=== PATIENT | female | born 1990 | race Caucasian/White ===

== ENCOUNTER 2018-04-29 02:55 | Inpatient (IN) | payer OTHER ==
[2018-04-29] MEDS ORDERED: Scopolamine 1.5 MG Transdermal Patch ONE (04:09)
[2018-04-29] MEDS ORDERED: Scopolamine 1.5 MG Transdermal Patch TOP ONE (04:10)
[2018-04-29] MEDS ORDERED: Lactated Ringers 1,000 ML IV SCH (04:25)
[2018-04-29] MEDS ORDERED: ceFAZolin 2 GM in Premix Bag 1 BAG IV ONE (04:30)
[2018-04-29] MEDS ORDERED: Citric Acid/Sodium Citrate Solution 30 ML Cup PO ONE (04:31)
--- NOTE | 2018-04-29 05:55 | PCM.OPNOTE ---
- General Post-Op/Procedure Note Date of Surgery/Procedure: 04/29/18 Operative Procedure(s): Repeat Pre Op Diagnosis: Term preg, previous C-sect, active labor Post-Op Diagnosis: Same Anesthesia Technique: Spinal Primary Surgeon: Maxi Ross Secondary Surgeon: Oscar Ren Anesthesia Provider: Hannah Cobb Pathology: Placenta EBL in mLs: 400 Complications: None Condition: Good
[2018-04-29] MEDS ORDERED: diphenhydrAMINE 50 MG/ML SDV IVPUSH PRN ×2 (05:58→05:59)
[2018-04-29] MEDS ORDERED: ePHEDrine 50 MG/ML SDV IVPUSH PRN ×2 (05:58→05:59)
[2018-04-29] MEDS ORDERED: Naloxone 0.4 MG/ML SDV IVPUSH PRN ×2 (05:58→05:59)
--- NOTE | 2018-04-29 05:58 | PCM.HPR ---
H & P Addendum review - H & P Addendum Review Date of Original H & P: 04/27/18 Date Reviewed: 04/29/18 Time Reviewed: 04:20 Patient was Examined: Changes (Presents in labor so will proceed with repet C- scet this am, risks and complications reviewed, consent obtained)
[2018-04-29] MEDS ORDERED: Docusate Sodium 100 MG Cap PO PRN (05:59)
[2018-04-29] MEDS ORDERED: Bisacodyl 10 MG Supp RECTAL PRN (05:59)
[2018-04-29] MEDS ORDERED: Ondansetron 4 MG/2 ML SDV IVPUSH PRN (06:23)
[2018-04-29] MEDS ORDERED: Ketorolac 15 MG/ML SDV IVPUSH PRN (06:23)
[2018-04-29] MEDS ORDERED: Morphine 2 MG/ML Syringe IVPUSH PRN (06:23)
[2018-04-29] MEDS ORDERED: Nalbuphine 10 MG/1 ML Vial IVPUSH PRN (06:23)
[2018-04-29] MEDS ORDERED: diphenhydrAMINE 50 MG/ML SDV IV PRN (06:23)
--- NOTE | 2018-04-29 06:38 | OR ---
DATE OF OPERATION: 04/29/2018 SURGEON: Maxi Ross MD PREOPERATIVE DIAGNOSIS: Term with previous section, in active labor. POSTOPERATIVE DIAGNOSIS: Term with previous section, in active labor. PROCEDURE PERFORMED: Repeat section. ACADEMIC MANAGER: Oscar Ren MD ANESTHESIA: Spinal. DESCRIPTION OF PROCEDURE: The patient was brought to the operating room where spinal anesthetic was administered. A Melgar catheter was inserted and Flowtrons applied. Time-out was performed. IV antibiotics had been given. Lower abdomen was prepped with ChloraPrep and draped sterilely. A lower transverse incision was made through her previous scar and extended to the rectus fascia, which was incised and extended laterally. Rectus muscles were split in the midline and peritoneal cavity entered without difficulty. No adhesions were present. Lower uterine segment was muscular and was not thinned. This was sharply incised until the amniotic sac was visible. This was then bluntly entered and the uterine incision extended laterally. Some light greenish clear meconium was present. Head was delivered without difficulty. Position was left occiput transverse. The mouth and nose were suctioned. Rest of the infant was delivered without difficulty and handed off to the nursing staff after cord was clamped and cut. Cord blood was obtained. The uterus was massaged and placenta and removed. All membranes were ensured to be removed. Uterus had good tone. Uterine incision was closed in a single layer with running locking #1 Vicryl. Hemostasis was assured. Uterus was delivered back into the peritoneal cavity. The abdomen was irrigated and suctioned and return was clear. Peritoneum was closed with running 2-0 chromic. Rectus fascia was closed with a running 0 Vicryl. Subcutaneous tissue was irrigated and skin closed with a running 4-0 Vicryl subcuticular suture. Benzoin and Steri-Strips were placed, and sterile dressing applied. The vagina was evacuated of some old blood and clot following the procedure. The patient tolerated the procedure well. Estimated blood loss was 400 mL. She returned to Postanesthesia in stable condition. /[id number] HONG/ARYA
[2018-04-29] MEDS: Lactated Ringers 1,000 ML IV SCH ×2 (07:50→15:55)
[2018-04-29] MEDS ORDERED: Midazolam 1 MG/ML 2 ML SDV IV ONE (14:39)
[2018-04-29] MEDS ORDERED: ePHEDrine 50 MG/ML SDV IV ONE (14:39)
[2018-04-29] MEDS ORDERED: Bupivacaine 0.75%/D5W 2 ML Amp ISPINAL ONE (14:39)
[2018-04-29] MEDS ORDERED: fentaNYL 100 MCG/2 ML SDV IV ONE (14:39)
[2018-04-29] MEDS ORDERED: Ondansetron 4 MG/2 ML SDV IVPUSH ONE (14:39)
[2018-04-29] MEDS ORDERED: diphenhydrAMINE 50 MG/ML SDV IVPUSH ONE (14:39)
[2018-04-29] MEDS ORDERED: Dexamethasone 4 MG/ML 5 ML MDV IVPUSH ONE (14:39)
[2018-04-29] MEDS ORDERED: Morphine PF 10 MG/10 ML SDV EPIDUR ONE (14:39)
[2018-04-29] MEDS ORDERED: Neostigmine Methylsulfate 10 MG/10 ML MDV IVPUSH ONE (14:39)
[2018-04-29] MEDS: Acetaminophen/HYDROcodone 325-5 MG Tab PO PRN (17:39)
[2018-04-30] MEDS: Acetaminophen/HYDROcodone 325-5 MG Tab PO PRN ×4 (02:32→21:30)
[2018-04-30] MEDS: Ibuprofen 600 MG Tab PO SCH ×3 (06:13→18:08)
--- NOTE | 2018-04-30 17:22 | PCM.SURGPN ---
- General Info Date of Service: 04/30/18 POD#: 1 Functional Status: Reports: Pain Controlled, Tolerating Diet, Ambulating, Urinating - Review of Systems General: Reports: No Symptoms Musculoskeletal: Reports: Leg Pain (right upper thigh from varicose veins) - Patient Data Vitals - Most Recent: Last Vital Signs Temp 98.2 F 04/30/18 02:30 Pulse 62 04/30/18 02:30 Resp 16 04/30/18 02:30 BP 131/77 04/30/18 02:30 Pulse Ox 97 04/30/18 02:30 Weight - Most Recent: 138.346 kg I&O - Last 24 Hours: Intake & Output 04/30/18 04/30/18 04/30/18 06:59 14:59 22:59 Intake Total 700 Output Total 1725 600 Balance -1025 -600 Lab Results Last 24 Hrs: Laboratory Results - last 24 hr 04/30/18 Range/Units 06:48 WBC 11.0 (4.5-12.0) X10-3/uL RBC 4.17 (3.23-5.20) x10(6)uL Hgb 11.8 (11.5-15.5) g/dL Hct 35.5 (30.0-51.3) % MCV 85.1 (80-96) fL MCH 28.2 (27.7-33.6) pg MCHC 33.1 (32.2-35.4) g/dL RDW 14.1 (11.5-15.5) % Plt Count 123 L (125-369) X10(3)uL Med Orders - Current: Current Medications Hydrocodone Bitart/Acetaminophen ([place] 325-5 Mg) 1 tab PO Q4H PRN PRN Reason: Pain (moderate 4-6) Last Admin: 04/30/18 15:17 Dose: 1 tab Bisacodyl (Dulcolax) 10 mg RECTAL BID PRN PRN Reason: Constipation Diphenhydramine HCl (Benadryl) 25 mg IVPUSH Q6H PRN PRN Reason: Itching or Nausea Last Admin: 04/29/18 09:42 Dose: 25 mg Diphenhydramine HCl (Benadryl) 25 mg IV ONETIME PRN PRN Reason: Pruritus Last Admin: 04/29/18 08:56 Dose: 25 mg Docusate Sodium (Colace) 100 mg PO Q12H PRN PRN Reason: Constipation Ephedrine Sulfate (Ephedrine Sulfate) 5 mg IVPUSH ASDIRECTED PRN PRN Reason: Other Ibuprofen (Motrin) 600 mg PO Q6H [facility] Last Admin: 04/30/18 12:02 Dose: 600 mg Ketorolac Tromethamine (Toradol) 15 mg IVPUSH Q6H PRN PRN Reason: Pain Stop: 05/04/18 06:25 Morphine Sulfate (Morphine) 2 mg IVPUSH Q1H PRN PRN Reason: Pain Nalbuphine HCl (Nubain) 10 mg IVPUSH Q1H PRN PRN Reason: Pruritus Naloxone HCl (Narcan) 0.1 mg IVPUSH ONETIME PRN PRN Reason: Respiratory Depression Ondansetron HCl (Zofran) 4 mg IVPUSH Q6H PRN PRN Reason: Nausea/Vomiting Discontinued Medications Citric Acid/Sodium Citrate (Bicitra Solution) 30 ml PO ONETIME ONE Stop: 04/29/18 04:32 Last Admin: 04/29/18 04:34 Dose: 30 ml Diphenhydramine HCl (Benadryl) 25 mg IVPUSH Q6H PRN PRN Reason: Itching or Nausea Ephedrine Sulfate (Ephedrine Sulfate) 5 mg IVPUSH ASDIRECTED PRN PRN Reason: Other Cefazolin Sodium/Dextrose 2 gm (/ Premix) 50 mls @ 100 mls/hr IV ONETIME ONE Stop: 04/29/18 04:59 Last Admin: 04/29/18 04:35 Dose: 100 mls/hr Lactated Ringer's (Ringers, Lactated) 1,000 mls @ 125 mls/hr IV ASDIRECTED [facility] Last Admin: 04/29/18 15:55 Dose: 125 mls/hr Lactated Ringer's (Ringers, Lactated) 1,000 mls @ 125 mls/hr IV ASDIRECTED [facility] Last Admin: 04/29/18 03:25 Dose: 125 mls/hr Naloxone HCl (Narcan) 0.1 mg IVPUSH ONETIME PRN PRN Reason: Respiratory Depression Scopolamine (Transderm-Scop) Confirm Administered Dose 1.5 mg .ROUTE .STK-MED ONE Stop: 04/29/18 04:10 Last Admin: 04/29/18 08:52 Dose: Not Given Scopolamine (Transderm-Scop) 1.5 mg TOP ONETIME ONE Stop: 04/29/18 04:11 Last Admin: 04/29/18 04:10 Dose: 1.5 mg - Exam Wound/Incisions: Healing Well, Dressing Dry and Intact Extremities: Leg Pain (from right thigh thrombophlebitis) - Problem List Review Problem List Initiated/Reviewed/Updated: Yes - My Orders Last 24 Hours: Active Orders 24 hr Category Date Time Status Urinary Catheter Removal [RC] Per Unit Routine Care 04/30/18 11:00 Active Regular Diet [DIET] Diet 04/30/18 Lunch Active Aspirin [Ecotrin] Med 04/30/18 17:30 Ordered 325 mg PO DAILY Ibuprofen [Motrin] Med 04/30/18 06:00 Active 600 mg PO Q6H Medication Orders Hydrocodone Bitart/Acetaminophen ([place] 325-5 Mg) 1 tab PO Q4H PRN PRN Reason: Pain (moderate 4-6) Last Admin: 04/30/18 15:17 Dose: 1 tab Admin: 04/30/18 10:35 Dose: 1 tab Admin: 04/30/18 02:32 Dose: 1 tab Admin: 04/29/18 17:39 Dose: 1 tab Bisacodyl (Dulcolax) 10 mg RECTAL BID PRN PRN Reason: Constipation Diphenhydramine HCl (Benadryl) 25 mg IVPUSH Q6H PRN PRN Reason: Itching or Nausea Last Admin: 04/29/18 09:42 Dose: 25 mg Diphenhydramine HCl (Benadryl) 25 mg IV ONETIME PRN PRN Reason: Pruritus Last Admin: 04/29/18 08:56 Dose: 25 mg Docusate Sodium (Colace) 100 mg PO Q12H PRN PRN Reason: Constipation Ephedrine Sulfate (Ephedrine Sulfate) 5 mg IVPUSH ASDIRECTED PRN PRN Reason: Other Ibuprofen (Motrin) 600 mg PO Q6H [facility] Last Admin: 04/30/18 12:02 Dose: 600 mg Admin: 04/30/18 06:13 Dose: 600 mg Ketorolac Tromethamine (Toradol) 15 mg IVPUSH Q6H PRN PRN Reason: Pain Stop: 05/04/18 06:25 Morphine Sulfate (Morphine) 2 mg IVPUSH Q1H PRN PRN Reason: Pain Nalbuphine HCl (Nubain) 10 mg IVPUSH Q1H PRN PRN Reason: Pruritus Naloxone HCl (Narcan) 0.1 mg IVPUSH ONETIME PRN PRN Reason: Respiratory Depression Ondansetron HCl (Zofran) 4 mg IVPUSH Q6H PRN PRN Reason: Nausea/Vomiting - Assessment Assessment (Free Text/Narrative):: Doing well POD #1 R Leg Thrombophlebitis - Plan Plan (Free Text/Narrative):: Cont as is Start Full ASA daily
[2018-04-30] MEDS: Aspirin 325 MG Tab.EC PO SCH (18:08)
[2018-05-01] MEDS: Ibuprofen 600 MG Tab PO SCH ×4 (00:51→17:39)
--- NOTE | 2018-05-01 08:52 | PCM.SURGPN ---
- General Info Date of Service: 05/01/18 POD#: 2 Functional Status: Reports: Pain Controlled, Tolerating Diet, Ambulating, Urinating - Review of Systems General: Reports: No Symptoms (right leg about the same) Gastrointestinal: Reports: No Symptoms - Patient Data Vitals - Most Recent: Last Vital Signs Temp 97.7 F 04/30/18 20:00 Pulse 86 04/30/18 20:00 Resp 18 04/30/18 20:00 BP 142/91 H 04/30/18 20:00 Pulse Ox 96 04/30/18 20:00 Weight - Most Recent: 138.346 kg Med Orders - Current: Current Medications Hydrocodone Bitart/Acetaminophen ([place] 325-5 Mg) 1 tab PO Q4H PRN PRN Reason: Pain (moderate 4-6) Last Admin: 04/30/18 21:30 Dose: 1 tab Aspirin (Ecotrin) 325 mg PO DAILY [facility] Last Admin: 04/30/18 18:08 Dose: 325 mg Bisacodyl (Dulcolax) 10 mg RECTAL BID PRN PRN Reason: Constipation Diphenhydramine HCl (Benadryl) 25 mg IVPUSH Q6H PRN PRN Reason: Itching or Nausea Last Admin: 04/29/18 09:42 Dose: 25 mg Diphenhydramine HCl (Benadryl) 25 mg IV ONETIME PRN PRN Reason: Pruritus Last Admin: 04/29/18 08:56 Dose: 25 mg Docusate Sodium (Colace) 100 mg PO Q12H PRN PRN Reason: Constipation Ephedrine Sulfate (Ephedrine Sulfate) 5 mg IVPUSH ASDIRECTED PRN PRN Reason: Other Ibuprofen (Motrin) 600 mg PO Q6H [facility] Last Admin: 05/01/18 06:46 Dose: 600 mg Ketorolac Tromethamine (Toradol) 15 mg IVPUSH Q6H PRN PRN Reason: Pain Stop: 05/04/18 06:25 Morphine Sulfate (Morphine) 2 mg IVPUSH Q1H PRN PRN Reason: Pain Nalbuphine HCl (Nubain) 10 mg IVPUSH Q1H PRN PRN Reason: Pruritus Naloxone HCl (Narcan) 0.1 mg IVPUSH ONETIME PRN PRN Reason: Respiratory Depression Ondansetron HCl (Zofran) 4 mg IVPUSH Q6H PRN PRN Reason: Nausea/Vomiting Discontinued Medications Citric Acid/Sodium Citrate (Bicitra Solution) 30 ml PO ONETIME ONE Stop: 04/29/18 04:32 Last Admin: 04/29/18 04:34 Dose: 30 ml Diphenhydramine HCl (Benadryl) 25 mg IVPUSH Q6H PRN PRN Reason: Itching or Nausea Ephedrine Sulfate (Ephedrine Sulfate) 5 mg IVPUSH ASDIRECTED PRN PRN Reason: Other Cefazolin Sodium/Dextrose 2 gm (/ Premix) 50 mls @ 100 mls/hr IV ONETIME ONE Stop: 04/29/18 04:59 Last Admin: 04/29/18 04:35 Dose: 100 mls/hr Lactated Ringer's (Ringers, Lactated) 1,000 mls @ 125 mls/hr IV ASDIRECTED [facility] Last Admin: 04/29/18 15:55 Dose: 125 mls/hr Lactated Ringer's (Ringers, Lactated) 1,000 mls @ 125 mls/hr IV ASDIRECTED [facility] Last Admin: 04/29/18 03:25 Dose: 125 mls/hr Naloxone HCl (Narcan) 0.1 mg IVPUSH ONETIME PRN PRN Reason: Respiratory Depression Scopolamine (Transderm-Scop) Confirm Administered Dose 1.5 mg .ROUTE .STK-MED ONE Stop: 04/29/18 04:10 Last Admin: 04/29/18 08:52 Dose: Not Given Scopolamine (Transderm-Scop) 1.5 mg TOP ONETIME ONE Stop: 04/29/18 04:11 Last Admin: 04/29/18 04:10 Dose: 1.5 mg - Exam Wound/Incisions: Healing Well, Dressing Dry and Intact - Problem List Review Problem List Initiated/Reviewed/Updated: Yes - My Orders Last 24 Hours: Active Orders 24 hr Category Date Time Status Regular Diet [DIET] Diet 04/30/18 Lunch Active Aspirin [Ecotrin] Med 04/30/18 17:30 Active 325 mg PO DAILY Medication Orders Hydrocodone Bitart/Acetaminophen ([place] 325-5 Mg) 1 tab PO Q4H PRN PRN Reason: Pain (moderate 4-6) Last Admin: 04/30/18 21:30 Dose: 1 tab Admin: 04/30/18 15:17 Dose: 1 tab Admin: 04/30/18 10:35 Dose: 1 tab Admin: 04/30/18 02:32 Dose: 1 tab Admin: 04/29/18 17:39 Dose: 1 tab Aspirin (Ecotrin) 325 mg PO DAILY [facility] Last Admin: 04/30/18 18:08 Dose: 325 mg Bisacodyl (Dulcolax) 10 mg RECTAL BID PRN PRN Reason: Constipation Diphenhydramine HCl (Benadryl) 25 mg IVPUSH Q6H PRN PRN Reason: Itching or Nausea Last Admin: 04/29/18 09:42 Dose: 25 mg Diphenhydramine HCl (Benadryl) 25 mg IV ONETIME PRN PRN Reason: Pruritus Last Admin: 04/29/18 08:56 Dose: 25 mg Docusate Sodium (Colace) 100 mg PO Q12H PRN PRN Reason: Constipation Ephedrine Sulfate (Ephedrine Sulfate) 5 mg IVPUSH ASDIRECTED PRN PRN Reason: Other Ibuprofen (Motrin) 600 mg PO Q6H [facility] Last Admin: 05/01/18 06:46 Dose: 600 mg Admin: 05/01/18 00:51 Dose: 600 mg Admin: 04/30/18 18:08 Dose: 600 mg Admin: 04/30/18 12:02 Dose: 600 mg Admin: 04/30/18 06:13 Dose: 600 mg Ketorolac Tromethamine (Toradol) 15 mg IVPUSH Q6H PRN PRN Reason: Pain Stop: 05/04/18 06:25 Morphine Sulfate (Morphine) 2 mg IVPUSH Q1H PRN PRN Reason: Pain Nalbuphine HCl (Nubain) 10 mg IVPUSH Q1H PRN PRN Reason: Pruritus Naloxone HCl (Narcan) 0.1 mg IVPUSH ONETIME PRN PRN Reason: Respiratory Depression Ondansetron HCl (Zofran) 4 mg IVPUSH Q6H PRN PRN Reason: Nausea/Vomiting - Assessment Assessment (Free Text/Narrative):: Doing well - Plan Plan (Free Text/Narrative):: Plan discharge tomorrow
[2018-05-01] MEDS: Aspirin 325 MG Tab.EC PO SCH (09:31)
[2018-05-01] MEDS: Acetaminophen/HYDROcodone 325-5 MG Tab PO PRN ×2 (09:33→20:29)
[2018-05-02] MEDS: Ibuprofen 600 MG Tab PO SCH ×3 (00:10→12:22)
[2018-05-02] MEDS: Acetaminophen/HYDROcodone 325-5 MG Tab PO PRN (05:35)
[2018-05-02 09:49] VITALS: BP 130/83
[2018-05-02] MEDS: Aspirin 325 MG Tab.EC PO SCH (10:28)
--- NOTE | 2018-05-02 14:18 | PCM.SURGPN ---
- General Info Date of Service: 05/02/18 POD#: 3 Functional Status: Reports: Pain Controlled, Tolerating Diet, Ambulating - Review of Systems General: Reports: No Symptoms - Patient Data Vitals - Most Recent: Last Vital Signs Temp 98.7 F 05/02/18 07:30 Pulse 87 05/02/18 07:30 Resp 18 05/02/18 07:30 BP 130/83 05/02/18 07:30 Pulse Ox 98 05/02/18 07:30 Weight - Most Recent: 138.346 kg Med Orders - Current: Current Medications Hydrocodone Bitart/Acetaminophen ([place] 325-5 Mg) 1 tab PO Q4H PRN PRN Reason: Pain (moderate 4-6) Last Admin: 05/02/18 05:35 Dose: 1 tab Aspirin (Ecotrin) 325 mg PO DAILY [facility] Last Admin: 05/02/18 10:28 Dose: 325 mg Bisacodyl (Dulcolax) 10 mg RECTAL BID PRN PRN Reason: Constipation Diphenhydramine HCl (Benadryl) 25 mg IVPUSH Q6H PRN PRN Reason: Itching or Nausea Last Admin: 04/29/18 09:42 Dose: 25 mg Diphenhydramine HCl (Benadryl) 25 mg IV ONETIME PRN PRN Reason: Pruritus Last Admin: 04/29/18 08:56 Dose: 25 mg Docusate Sodium (Colace) 100 mg PO Q12H PRN PRN Reason: Constipation Ephedrine Sulfate (Ephedrine Sulfate) 5 mg IVPUSH ASDIRECTED PRN PRN Reason: Other Ibuprofen (Motrin) 600 mg PO Q6H [facility] Last Admin: 05/02/18 12:22 Dose: 600 mg Ketorolac Tromethamine (Toradol) 15 mg IVPUSH Q6H PRN PRN Reason: Pain Stop: 05/04/18 06:25 Morphine Sulfate (Morphine) 2 mg IVPUSH Q1H PRN PRN Reason: Pain Nalbuphine HCl (Nubain) 10 mg IVPUSH Q1H PRN PRN Reason: Pruritus Naloxone HCl (Narcan) 0.1 mg IVPUSH ONETIME PRN PRN Reason: Respiratory Depression Ondansetron HCl (Zofran) 4 mg IVPUSH Q6H PRN PRN Reason: Nausea/Vomiting Discontinued Medications Citric Acid/Sodium Citrate (Bicitra Solution) 30 ml PO ONETIME ONE Stop: 04/29/18 04:32 Last Admin: 04/29/18 04:34 Dose: 30 ml Diphenhydramine HCl (Benadryl) 25 mg IVPUSH Q6H PRN PRN Reason: Itching or Nausea Ephedrine Sulfate (Ephedrine Sulfate) 5 mg IVPUSH ASDIRECTED PRN PRN Reason: Other Cefazolin Sodium/Dextrose 2 gm (/ Premix) 50 mls @ 100 mls/hr IV ONETIME ONE Stop: 04/29/18 04:59 Last Admin: 04/29/18 04:35 Dose: 100 mls/hr Lactated Ringer's (Ringers, Lactated) 1,000 mls @ 125 mls/hr IV ASDIRECTED [facility] Last Admin: 04/29/18 15:55 Dose: 125 mls/hr Lactated Ringer's (Ringers, Lactated) 1,000 mls @ 125 mls/hr IV ASDIRECTED [facility] Last Admin: 04/29/18 03:25 Dose: 125 mls/hr Naloxone HCl (Narcan) 0.1 mg IVPUSH ONETIME PRN PRN Reason: Respiratory Depression Scopolamine (Transderm-Scop) Confirm Administered Dose 1.5 mg .ROUTE .STK-MED ONE Stop: 04/29/18 04:10 Last Admin: 04/29/18 08:52 Dose: Not Given Scopolamine (Transderm-Scop) 1.5 mg TOP ONETIME ONE Stop: 04/29/18 04:11 Last Admin: 04/29/18 04:10 Dose: 1.5 mg - Exam Wound/Incisions: Healing Well, Dressing Dry and Intact - Problem List Review Problem List Initiated/Reviewed/Updated: Yes - My Orders Last 24 Hours: Medication Orders Hydrocodone Bitart/Acetaminophen ([place] 325-5 Mg) 1 tab PO Q4H PRN PRN Reason: Pain (moderate 4-6) Last Admin: 05/02/18 05:35 Dose: 1 tab Admin: 05/01/18 20:29 Dose: 1 tab Admin: 05/01/18 09:33 Dose: 1 tab Admin: 04/30/18 21:30 Dose: 1 tab Admin: 04/30/18 15:17 Dose: 1 tab Admin: 04/30/18 10:35 Dose: 1 tab Admin: 04/30/18 02:32 Dose: 1 tab Admin: 04/29/18 17:39 Dose: 1 tab Aspirin (Ecotrin) 325 mg PO DAILY [facility] Last Admin: 05/02/18 10:28 Dose: 325 mg Admin: 05/01/18 09:31 Dose: 325 mg Admin: 04/30/18 18:08 Dose: 325 mg Bisacodyl (Dulcolax) 10 mg RECTAL BID PRN PRN Reason: Constipation Diphenhydramine HCl (Benadryl) 25 mg IVPUSH Q6H PRN PRN Reason: Itching or Nausea Last Admin: 04/29/18 09:42 Dose: 25 mg Diphenhydramine HCl (Benadryl) 25 mg IV ONETIME PRN PRN Reason: Pruritus Last Admin: 04/29/18 08:56 Dose: 25 mg Docusate Sodium (Colace) 100 mg PO Q12H PRN PRN Reason: Constipation Ephedrine Sulfate (Ephedrine Sulfate) 5 mg IVPUSH ASDIRECTED PRN PRN Reason: Other Ibuprofen (Motrin) 600 mg PO Q6H [facility] Last Admin: 05/02/18 12:22 Dose: 600 mg Admin: 05/02/18 05:32 Dose: 600 mg Admin: 05/02/18 00:10 Dose: Not Given Admin: 05/01/18 17:39 Dose: 600 mg Admin: 05/01/18 12:04 Dose: 600 mg Admin: 05/01/18 06:46 Dose: 600 mg Admin: 05/01/18 00:51 Dose: 600 mg Admin: 04/30/18 18:08 Dose: 600 mg Admin: 04/30/18 12:02 Dose: 600 mg Admin: 04/30/18 06:13 Dose: 600 mg Ketorolac Tromethamine (Toradol) 15 mg IVPUSH Q6H PRN PRN Reason: Pain Stop: 05/04/18 06:25 Morphine Sulfate (Morphine) 2 mg IVPUSH Q1H PRN PRN Reason: Pain Nalbuphine HCl (Nubain) 10 mg IVPUSH Q1H PRN PRN Reason: Pruritus Naloxone HCl (Narcan) 0.1 mg IVPUSH ONETIME PRN PRN Reason: Respiratory Depression Ondansetron HCl (Zofran) 4 mg IVPUSH Q6H PRN PRN Reason: Nausea/Vomiting - Assessment Assessment (Free Text/Narrative):: Doing well - Plan Plan (Free Text/Narrative):: Discharge
--- NOTE | 2018-05-02 14:21 | PCM.DCSUM1 ---
Discharge Summary - Hospital Course Free Text/Narrative:: Presented in labor and had C-sect dean of instruction of 04/29/18 HPI Initial Comments: Term with prior C-sect Brief History: See H&P - Discharge Data Discharge Date: 05/02/18 Discharge Disposition: Home, Self-Care 01 Condition: Good - Patient Summary/Data Operative Procedure(s) Performed: Repeat Complications: none Recommended Follow-up Testing/Procedures: Dr Ross 1 month for recheck of varicose veins and thrombophlebitis - Patient Instructions Diet: Usual Diet as Tolerated Activity: No Lifting Over 20 Pounds (for 4 weeks) Driving: May Drive Today Showering/Bathing: May Shower Wound/Incision Care: Keep Operative Site/Wound Site Clean and Dry - Discharge Plan Home Medications: Home Meds Vit #76/Iron,Carb/Fa [Prenatabs Rx] 1 tab PO DAILY 09/18/14 [History] Omeprazole 20 mg PO DAILY 04/29/18 [History] Patient Handouts: Depression, Baby Blues, Hand Washing, [id number], Delivery, Care After, Home Care Instructions for Mom, Care After Delivery - Discharge Summary/Plan Comment DC Time >30 min.: No - Patient Data Vitals - Most Recent: Last Vital Signs Temp 98.7 F 05/02/18 07:30 Pulse 87 05/02/18 07:30 Resp 18 05/02/18 07:30 BP 130/83 05/02/18 07:30 Pulse Ox 98 05/02/18 07:30 Weight - Most Recent: 138.346 kg Med Orders - Current: Current Medications Hydrocodone Bitart/Acetaminophen ([place] 325-5 Mg) 1 tab PO Q4H PRN PRN Reason: Pain (moderate 4-6) Last Admin: 05/02/18 05:35 Dose: 1 tab Aspirin (Ecotrin) 325 mg PO DAILY [facility] Last Admin: 05/02/18 10:28 Dose: 325 mg Bisacodyl (Dulcolax) 10 mg RECTAL BID PRN PRN Reason: Constipation Diphenhydramine HCl (Benadryl) 25 mg IVPUSH Q6H PRN PRN Reason: Itching or Nausea Last Admin: 04/29/18 09:42 Dose: 25 mg Diphenhydramine HCl (Benadryl) 25 mg IV ONETIME PRN PRN Reason: Pruritus Last Admin: 04/29/18 08:56 Dose: 25 mg Docusate Sodium (Colace) 100 mg PO Q12H PRN PRN Reason: Constipation Ephedrine Sulfate (Ephedrine Sulfate) 5 mg IVPUSH ASDIRECTED PRN PRN Reason: Other Ibuprofen (Motrin) 600 mg PO Q6H [facility] Last Admin: 05/02/18 12:22 Dose: 600 mg Ketorolac Tromethamine (Toradol) 15 mg IVPUSH Q6H PRN PRN Reason: Pain Stop: 05/04/18 06:25 Morphine Sulfate (Morphine) 2 mg IVPUSH Q1H PRN PRN Reason: Pain Nalbuphine HCl (Nubain) 10 mg IVPUSH Q1H PRN PRN Reason: Pruritus Naloxone HCl (Narcan) 0.1 mg IVPUSH ONETIME PRN PRN Reason: Respiratory Depression Ondansetron HCl (Zofran) 4 mg IVPUSH Q6H PRN PRN Reason: Nausea/Vomiting Discontinued Medications Citric Acid/Sodium Citrate (Bicitra Solution) 30 ml PO ONETIME ONE Stop: 04/29/18 04:32 Last Admin: 04/29/18 04:34 Dose: 30 ml Diphenhydramine HCl (Benadryl) 25 mg IVPUSH Q6H PRN PRN Reason: Itching or Nausea Ephedrine Sulfate (Ephedrine Sulfate) 5 mg IVPUSH ASDIRECTED PRN PRN Reason: Other Cefazolin Sodium/Dextrose 2 gm (/ Premix) 50 mls @ 100 mls/hr IV ONETIME ONE Stop: 04/29/18 04:59 Last Admin: 04/29/18 04:35 Dose: 100 mls/hr Lactated Ringer's (Ringers, Lactated) 1,000 mls @ 125 mls/hr IV ASDIRECTED [facility] Last Admin: 04/29/18 15:55 Dose: 125 mls/hr Lactated Ringer's (Ringers, Lactated) 1,000 mls @ 125 mls/hr IV ASDIRECTED [facility] Last Admin: 04/29/18 03:25 Dose: 125 mls/hr Naloxone HCl (Narcan) 0.1 mg IVPUSH ONETIME PRN PRN Reason: Respiratory Depression Scopolamine (Transderm-Scop) Confirm Administered Dose 1.5 mg .ROUTE .STK-MED ONE Stop: 04/29/18 04:10 Last Admin: 04/29/18 08:52 Dose: Not Given Scopolamine (Transderm-Scop) 1.5 mg TOP ONETIME ONE Stop: 04/29/18 04:11 Last Admin: 04/29/18 04:10 Dose: 1.5 mg
== END 2018-05-02 14:40 | disposition home or self-care (01) | DRG 787 ==
LOC: FB.OB 02:55 → INTOOBSV 02:55 → UNDOADMIN 02:55 → OBSVTOIN 02:55
PROVIDERS: ADMIT Family Medicine; ATTEND Surgery
PROC: 10D00Z1 Extraction of Products of Conception, Low, Open Approach (ICD-10-PCS; principal; 2018-04-29)
PROC: 6A550ZT Pheresis of Cord Blood Stem Cells, Single (ICD-10-PCS; principal; 2018-04-29)
DX: O34.211 Maternal care for low transverse scar from previous cesarean delivery (principal); O87.0 Superficial thrombophlebitis in the puerperium; Z3A.39 39 weeks gestation of pregnancy; N85.8 Other specified noninflammatory disorders of uterus; Z37.0 Single live birth; O77.0 Labor and delivery complicated by meconium in amniotic fluid; O87.4 Varicose veins of lower extremity in the puerperium
CPT/HCPCS: 36415; 85025; 85027; 86850; 86900; 86901; 88307; A9270-GY; J0690; J1100; J1200; J2250; J2270; J2405; J2590; J2710; J3010; J7120

== ENCOUNTER 2020-03-03 21:27 | Emergency (ER) | payer OTHER ==
[2020-03-03] MEDS ORDERED: Sodium Chloride 0.9% 10 ML Syringe FLUSH PRN (22:10)
[2020-03-03] MEDS ORDERED: Ketorolac 30 MG/ML SDV IVPUSH ONE (22:13)
[2020-03-03] MEDS ORDERED: Ondansetron 4 MG/2 ML SDV IVPUSH ONE (22:13)
[2020-03-03] MEDS ORDERED: Sodium Chloride 0.9% 1,000 ML IV SCH (22:15)
[2020-03-03] MEDS ORDERED: Iopamidol 755 Mg/ML 100 ML Bottle IV ONE (22:48)
[2020-03-03] MEDS ORDERED: Sulfamethoxazole/Trimethoprim 800-160 MG Tab PO STA (23:39)
[2020-03-03 23:41] VITALS: BP 113/55; PULSE 92
--- NOTE | 2020-03-03 23:44 | EDM.PDOC ---
ED HPI GENERAL MEDICAL PROBLEM - General Chief Complaint: Abdominal Pain Stated Complaint: ABDOMINAL PAIN Time Seen by Provider: 03/03/20 21:40 Source of Information: Reports: Patient History Limitations: Reports: No Limitations - History of Present Illness INITIAL COMMENTS - FREE TEXT/NARRATIVE: Patient presented to the ED because of abdominal pain which started at about 2100. The pain is sharp and cramping,9/10, with associated nausea and diarrhea but no vomiting There is no associated fever/chills. No urinary symptoms. R lower abdomen Pain Score (Numeric/FACES): 7 - Related Data Allergies Allergy/AdvReac Type Severity Reaction Status Date / Time No Known Allergies Allergy Verified 03/03/20 21:33 Home Meds: Home Meds Cholecalciferol (Vitamin D3) [Vitamin D3] 1,000 unit PO DAILY 03/03/20 [History] L.acidoph,Paracasei, B.lactis [Probiotic] 1 each PO DAILY 03/03/20 [History] Multivit with Minerals/Lutein [A Thru Z Advanced Formula Tab] 1 tab DAILY 03/03/20 [History] Sulfamethoxazole/Trimethoprim [Bactrim Ds Tablet] 1 each PO BID #6 tablet 03/03/20 [Rx] Past Medical History Other HEENT History: tonsils when 2 yrs old 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 - Infectious Disease History Infectious Disease History: Reports: Chicken Pox - Past Surgical History HEENT Surgical History: Reports: Adenoidectomy, Oral Surgery, Tonsillectomy Other HEENT Surgeries/Procedures: wisdom teeth Female Surgical History: Reports: Section Social & Family History - Family History Family Medical History: No Pertinent Family History - Tobacco Use Tobacco Use Status *Q: Unknown Ever Used Tobacco - Caffeine Use Caffeine Use: Reports: Coffee - Recreational Drug Use Recreational Drug Use: No ED ROS GENERAL - Review of Systems Review Of Systems: See Below Constitutional: Reports: No Symptoms HEENT: Reports: No Symptoms Respiratory: Reports: No Symptoms Cardiovascular: Reports: No Symptoms Endocrine: Reports: No Symptoms GI/Abdominal: Reports: Abdominal Pain, Diarrhea, Nausea : Reports: No Symptoms Musculoskeletal: Reports: No Symptoms Skin: Reports: No Symptoms Neurological: Reports: No Symptoms ED EXAM, GI/ABD - Physical Exam Exam: See Below Exam Limited By: No Limitations General Appearance: Alert, No Apparent Distress Ears: Normal External Exam, Normal Canal Nose: Normal Inspection, Normal Mucosa Throat/Mouth: Normal Inspection, Normal Lips, Normal Teeth Head: Atraumatic, Normocephalic Neck: Normal Inspection, Supple, Non-Tender, Full Range of Motion Respiratory/Chest: No Respiratory Distress, Lungs Clear, Normal Breath Sounds Cardiovascular: Normal Peripheral Pulses, Regular Rate, Rhythm, No Edema, No Gallop GI/Abdominal Exam: Normal Bowel Sounds, Soft, Other (tenderness over the RLQ and suprapubic area) Extremities: Normal Inspection, Normal Range of Motion, Non-Tender Neurological: Alert, Oriented, CN II-XII Intact, Normal Cognition Psychiatric: Normal Affect Course - Vital Signs Text/Narrative:: Labs/Abd/pelvic CT was discussed with patient NS 1 L bolus Zofran 4 mg IV x1 Toradol 30 mg IV x1 Bactrim DS 1 PO x1 Last Recorded V/S: Last Vital Signs Temp 36.6 C 03/03/20 23:40 Pulse 92 03/03/20 23:40 Resp 18 03/03/20 23:40 BP 113/55 L 03/03/20 23:40 Pulse Ox 100 03/03/20 23:40 - Orders/Labs/Meds Orders: Active Orders 24 hr Category Date Time Status Abdomen Pelvis w Cont [CT] Stat Exams 03/03/20 22:10 Taken Sodium Chloride 0.9% [Normal Saline] 1,000 ml Med 03/03/20 22:15 Active IV ASDIRECTED Sodium Chloride 0.9% [Saline Flush] Med 03/03/20 22:10 Active 10 ml FLUSH ASDIRECTED PRN Saline Lock Insert [OM.PC] Routine Oth 03/03/20 22:10 Ordered Medication Orders Sodium Chloride (Normal Saline) 1,000 mls @ 999 mls/hr IV ASDIRECTED LEYLA Last Admin: 03/03/20 23:05 Dose: 999 mls/hr Documented by: JUAN J Sodium Chloride (Saline Flush) 10 ml FLUSH ASDIRECTED PRN PRN Reason: Keep Vein Open Last Admin: 03/03/20 22:30 Dose: 10 ml Documented by: Labs: Laboratory Tests 03/03/20 03/03/20 03/03/20 Range/Units 21:44 21:44 21:55 WBC 9.1 (3.0-10.3) x10-3/uL RBC 4.73 (3.60-5.20) x10(6)uL Hgb 13.2 (11.4-15.5) g/dL Hct 39.2 (34.2-48.2) % MCV 82.7 (76.7-100.5) fL MCH 27.9 (23.9-33.9) pg MCHC 33.7 (31.9-34.8) g/dL RDW 13.2 (12.3-16.5) % Plt Count 217 (151-488) x10(3)uL MPV 8.8 (7.1-12.4) fL Neut % (Auto) 66.7 (30.8-76.2) % Lymph % (Auto) 25.9 (18.4-52.1) % [place] % (Auto) 5.8 (4.4-15.7) % Eos % (Auto) 1.1 (0.6-8.1) % Baso % (Auto) 0.5 (0.2-1.5) % Neut # (Auto) 6.1 (1.5-6.3) x10-3/uL Lymph # (Auto) 2.4 (1.0-4.4) x10-3/uL [place] # (Auto) 0.5 (0.3-1.0) x10-3/uL Eos # (Auto) 0.1 (0.0-0.8) x10-3/uL Baso # (Auto) 0.0 (0.0-0.1) x10-3/uL Sodium (135-145) mmol/L Potassium (3.5-5.3) mmol/L Chloride (100-110) mmol/L Carbon Dioxide (21-32) mmol/L BUN (7-18) mg/dL Creatinine (0.55-1.02) mg/dL Est Cr Clr Drug Dosing mL/min Estimated GFR (MDRD) (>60) BUN/Creatinine Ratio (9-20) Glucose (80-116) mg/dL Calcium (8.6-10.2) mg/dL Total Bilirubin (0.1-1.3) mg/dL AST (5-25) IU/L ALT (12-36) U/L Alkaline Phosphatase (56-112) IU/L Total Protein (6.0-8.0) g/dL Albumin (3.5-5.2) g/dL Amylase (25-115) U/L Lipase (73-393) U/L Urine Color Yellow (YELLOW) Urine Appearance Clear (CLEAR) Urine pH 6.0 (5.0-6.5) Ur Specific [place] 1.020 (1.010-1.025) Urine Protein Negative (NEGATIVE) mg/dL Urine Glucose (UA) Normal (NORMAL) mg/dL Urine Ketones Negative (NEGATIVE) mg/dL Urine Occult Blood Negative (NEGATIVE) Urine Nitrite Negative (NEGATIVE) Urine Bilirubin Negative (NEGATIVE) Urine Urobilinogen Normal (NEGATIVE) mg/dL Ur Leukocyte Esterase Moderate H (NEGATIVE) Urine RBC 0-5 (0-5) Urine WBC 0-5 (0-5) Ur Squamous Epith Cells Few H (NS,R,O) Urine Bacteria Moderate H (NS) Urine Mucus Moderate H (NS) Urine HCG, Qual Negative (NEGATIVE) 03/03/20 03/03/20 03/03/20 Range/Units 21:55 21:55 21:55 WBC (3.0-10.3) x10-3/uL RBC (3.60-5.20) x10(6)uL Hgb (11.4-15.5) g/dL Hct (34.2-48.2) % MCV (76.7-100.5) fL MCH (23.9-33.9) pg MCHC (31.9-34.8) g/dL RDW (12.3-16.5) % Plt Count (151-488) x10(3)uL MPV (7.1-12.4) fL Neut % (Auto) (30.8-76.2) % Lymph % (Auto) (18.4-52.1) % [place] % (Auto) (4.4-15.7) % Eos % (Auto) (0.6-8.1) % Baso % (Auto) (0.2-1.5) % Neut # (Auto) (1.5-6.3) x10-3/uL Lymph # (Auto) (1.0-4.4) x10-3/uL [place] # (Auto) (0.3-1.0) x10-3/uL Eos # (Auto) (0.0-0.8) x10-3/uL Baso # (Auto) (0.0-0.1) x10-3/uL Sodium 140 (135-145) mmol/L Potassium 4.0 (3.5-5.3) mmol/L Chloride 101 (100-110) mmol/L Carbon Dioxide 26 (21-32) mmol/L BUN 14 (7-18) mg/dL Creatinine 1.1 H (0.55-1.02) mg/dL Est Cr Clr Drug Dosing 86.30 mL/min Estimated GFR (MDRD) 58 L (>60) BUN/Creatinine Ratio 12.7 (9-20) Glucose 127 H (80-116) mg/dL Calcium 9.0 (8.6-10.2) mg/dL Total Bilirubin 0.6 (0.1-1.3) mg/dL AST 11 (5-25) IU/L ALT 19 (12-36) U/L Alkaline Phosphatase 87 (56-112) IU/L Total Protein 7.2 (6.0-8.0) g/dL Albumin 3.8 (3.5-5.2) g/dL Amylase 35 (25-115) U/L Lipase 82 (73-393) U/L Urine Color (YELLOW) Urine Appearance (CLEAR) Urine pH (5.0-6.5) Ur Specific [place] (1.010-1.025) Urine Protein (NEGATIVE) mg/dL Urine Glucose (UA) (NORMAL) mg/dL Urine Ketones (NEGATIVE) mg/dL Urine Occult Blood (NEGATIVE) Urine Nitrite (NEGATIVE) Urine Bilirubin (NEGATIVE) Urine Urobilinogen (NEGATIVE) mg/dL Ur Leukocyte Esterase (NEGATIVE) Urine RBC (0-5) Urine WBC (0-5) Ur Squamous Epith Cells (NS,R,O) Urine Bacteria (NS) Urine Mucus (NS) Urine HCG, Qual (NEGATIVE) Meds: Medications Generic Name Dose Route Start Last Admin Trade Name Freq PRN Reason Stop Dose Admin Sodium Chloride 1,000 mls @ 999 mls/hr 03/03/20 22:15 03/03/20 23:05 Normal Saline IV 999 mls/hr ASDIRECTED LEYLA Administration Sodium Chloride 10 ml 03/03/20 22:10 03/03/20 22:30 Saline Flush FLUSH 10 ml ASDIRECTED PRN Administration Keep Vein Open Discontinued Medications Generic Name Dose Route Start Last Admin Trade Name Titoq PRN Reason Stop Dose Admin Iopamidol 100 ml 03/03/20 22:48 03/03/20 22:55 [id number] (76%) IV 03/03/20 22:49 100 ml . DIRECTED ONE Administration Ketorolac Tromethamine 30 mg 03/03/20 22:13 03/03/20 22:50 Toradol IVPUSH 03/03/20 22:14 30 mg ONETIME ONE Administration Ondansetron HCl 4 mg 03/03/20 22:13 03/03/20 22:43 Zofran IVPUSH 03/03/20 22:14 4 mg ONETIME ONE Administration Trimethoprim/Sulfamethoxazole 1 tab 03/03/20 23:39 03/03/20 23:42 Septra Ds PO 03/03/20 23:40 1 tab NOW STA Administration Departure - Departure Time of Disposition: 11:40 Disposition: Home, Self-Care 01 Condition: Good Clinical Impression: UTI (urinary tract infection), Gastroenteritis - Discharge Information Prescriptions: Sulfamethoxazole/Trimethoprim [Bactrim Ds Tablet] 1 each PO BID #6 tablet Instructions: Viral Gastroenteritis, Adult, [id number], Urinary Tract Infection, Adult, [id number], Sulfamethoxazole; Trimethoprim, [id number] tablets Referrals: Winston Edwards MD [Primary Care Provider] - Forms: ED Department Discharge Additional Instructions: Please read discharge instructions on UTI and Viral Gastroenteritis Frequent hand washing Increase oral fluids Take ibuprofen 800 mg with tylenol 1000 mg every 8 hours as needed for pain Bactrim DS twice daily for 3 days If you still have diarrhea tomorrow you can take imodium 2 tablets every 6 hours as needed Follow up as needed Sepsis Event Note (ED) - Evaluation Sepsis Screening Result: No Definite Risk - Focused Exam Vital Signs: Vital Signs Temp Pulse Resp BP Pulse Ox 03/03/20 23:40 36.6 C 92 18 113/55 L 100 03/03/20 21:35 36.8 C 97 18 143/91 H 100 - My Orders Last 24 Hours: My Active Orders 03/03/20 22:10 Abdomen Pelvis w Cont [CT] Stat Sodium Chloride 0.9% [Saline Flush] 10 ml FLUSH ASDIRECTED PRN Saline Lock Insert [OM.PC] Routine 03/03/20 22:15 Sodium Chloride 0.9% [Normal Saline] 1,000 ml IV ASDIRECTED - Assessment/Plan Last 24 Hours: My Active Orders 03/03/20 22:10 Abdomen Pelvis w Cont [CT] Stat Sodium Chloride 0.9% [Saline Flush] 10 ml FLUSH ASDIRECTED PRN Saline Lock Insert [OM.PC] Routine 03/03/20 22:15 Sodium Chloride 0.9% [Normal Saline] 1,000 ml IV ASDIRECTED
== END 2020-03-03 23:53 | disposition home or self-care (01) ==
LOC: FB.ED 21:27
DX: K52.9 Noninfective gastroenteritis and colitis, unspecified (principal); N39.0 Urinary tract infection, site not specified; E66.9 Obesity, unspecified; Z68.41 Body mass index [BMI] 40.0-44.9, adult
CPT/HCPCS: 36415; 74177; 80048; 81001; 81025; 82040; 82150; 82247; 83690; 84075; 84155; 84450; 84460; 85025; 87086; 96374; 96375; 99284-25; A9270-GY; J1885; J2405; J7030; Q9967